=== PATIENT | female | born 1970 | race Caucasian/White ===

== ENCOUNTER 2017-09-13 05:14 | Emergency (ER) | payer OTHER ==
[~2017-09-13] VITALS: Ht 157.5 cm; Wt 65.8 kg
[2017-09-13 05:47] VITALS: BP 129/69
[2017-09-13] MEDS ORDERED: BENTYL PO STA (06:12)
--- NOTE | 2017-09-13 06:20 | ER.PDOC ---
General Chief Complaint: Abdomen Pain Stated Complaint: ABD PAIN Time seen by MD: 06:06 Source: patient Exam Limitations: no limitations History of Present Illness Initial Comments RUQ and epigast ab pain onset sev hrs ago, constant. No N/V, bowl or urine problems. No PSH Timing/Duration: 4-6 hours Severity/Quality: moderate Radiation: back Associated Symptoms: back pain Exacerbated by: nothing Relieved By: nothing Allergies: Coded Allergies: codeine (Verified Allergy, Unknown, 09/13/17) Vital Signs First Vital Signs Date Time Temp Pulse Resp B/P (MAP) Pulse Ox O2 Delivery O2 Flow Rate FiO2 09/13/17 05:43 98.1 64 18 99 Room Air 98.1 09/13/17 05:47 129/69 (89) Last Vital Signs Date Time Temp Pulse Resp B/P (MAP) Pulse Ox O2 Delivery O2 Flow Rate FiO2 09/13/17 05:47 98.1 82 18 129/69 (89) 99 Room Air 98.1 Past Medical History Medical History: other Surgical History: , tubal, other LMP (females 10-50): last week Social History Smoking: non-smoker Alcohol Use: occassionally Drug Use: none Constitutional: no symptoms reported EENTM: no symptoms reported Respiratory: no symptoms reported Cardiovascular: no symptoms reported Gastrointestinal: see HPI All Other Systems: Reviewed and Negative Physical Exam General Appearance: Anxious, Moderate Distress HEENT: PERRL/EOMI, Normal ENT Inspection Neck: Non-Tender, Supple, Normal Inspection Respiratory: chest non-tender, lungs clear, normal breath sounds, no respiratory distress Cardiovascular: Normal Peripheral Pulses, Regular Rate, Rhythm, No Edema Gastrointestinal: Normal Bowel Sounds, Soft, Guarding, Tenderness (RUQ and epigast.) Back: Normal Inspection, No CVA Tenderness, No Vertebral Tenderness Extremities: Normal Range of Motion, Non-Tender, Normal Inspection, No Pedal Edema 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 Bourne at 0700. EKG/XRAY/CT/US Ultrasound: gall bladder stones Course Vitals & review Data Vital Sign - Last 24 Hours 09/13/17 09/13/17 09/13/17 05:43 05:43 05:47 Temp 98.1 98.1 98.1 98.1 98.1 98.1 Pulse 64 82 82 Resp B/P (MAP) 129/69 (89) Pulse Ox 99 99 O2 Delivery Room Air Room Air Current Medications Medications (Trade) Dose Ordered Sig/Christin PRN Reason Start Time Stop Time Status Last Admin Dicyclomine HCl (Bentyl) 20 mg STAT STAT 09/13/17 06:12 09/13/17 06:13 Departure Time of Disposition: 08:11 Disposition: 01 HOME, SELF-CARE Impression: Primary Impression: Biliary colic Condition: Improved Referrals: TAMIA KUNZ MD (PCP) PRIMARY CARE PROVIDER Comments SURGERY F/U Duration or Time Spent with Pa: 2 hrs STEFFANIE PAL DO Sep 13, 2017 06:20 LUIS BOURNE MD Sep 13, 2017 07:37
[2017-09-13 06:25] LABS: BASOPHIL % 0.1 % (0.0-0.2); EOSINOPHIL # 0.1 10^3/uL (0.0-0.2); EOSINOPHIL % 1.1 % (0.0-5.0); HEMOGLOBIN 14.3 g/dL (12.0-15.0); LYMPHOCYTES # 1.2 10^3/uL (1.0-4.8); LYMPHOCYTES % 16.8 % (24.0-44.0); MEAN CELL HGB 32.1 pg (26-34); MEAN CELL HGB CONCENTRATION 34.7 g/dL (33-37); MEAN CORP VOLUME 92.6 fL (78-100); MEAN PLATELET VOLUME 10.2 fL (7.8-11.0); MONOCYTES # 0.5 10^3/uL (0.3-0.8); MONOCYTES % 6.8 % (5.0-12.0); NEUTROPHIL # 5.3 10^3/uL (1.8-7.7); NEUTROPHILS % 74.9 % (41.0-85.0); RED CELL DISTRIBUTION WIDTH 12.7 % (11.5-14.5)
[2017-09-13] MEDS ORDERED: NS 1000ML 1,000 ML IV ONE ×2 (06:30→08:30)
[2017-09-13] MEDS ORDERED: MORPHINE SULFATE SL ONE (06:30)
[2017-09-13 06:51] LABS: CARBON DIOXIDE 24.5 mmol/L (20.0-32)
[2017-09-13 07:04] LABS: BILIRUBIN,URINE NEGATIVE (NEGATIVE); UROBILINOGEN,URINE NORMAL (NEGATIVE)
[2017-09-13 07:06] LABS: APPEARANCE,URINE CLEAR (CLEAR); UA COLOR STRAW (YELLOW)
[2017-09-13] MEDS ORDERED: BENTYL ONE (07:08)
[2017-09-13] MEDS ORDERED: MORPHINE SULFATE IV STA (07:23)
[2017-09-13] MEDS ORDERED: MORPHINE SULFATE IV PRN (07:30)
--- NOTE | 2017-09-13 07:33 | NUR ---
US PATIENT RETURNED FROM US. FAMILY X 2 IN THE ROOM. MONITORS RE-APPLIED. LW
[2017-09-13] MEDS ORDERED: ZOFRAN IV STA (07:39)
[2017-09-13] MEDS ORDERED: NS 1000ML 1,000 ML ONE (07:44)
[2017-09-13] MEDS ORDERED: ZOFRAN ONE (07:45)
[2017-09-13] MEDS ORDERED: TORADOL IV STA (08:09)
[2017-09-13] MEDS ORDERED: TORADOL ONE (08:09)
--- NOTE | 2017-09-13 08:12 | DIREP ---
PROCEDURE:US ABDOMEN LIMITED (SINGLE ORGAN - QUAD) COMPARISON:None. INDICATIONS:RUQ pain TECHNIQUE:High resolution sonographic examination was performed of the abdomen. FINDINGS: RIGHT KIDNEY:10.16 cm x 4.08 cm x 5.16 cm, renal tissue volume is 111.99 ml GALL BLADDER WALL:2.92 mm CBD:2.85 mm PANCREAS:Not well visualized due to overlying bowel gas. LIVER:Normal size and echogenicity. No significant masses. Flow in the portal venous system is in the normal hepatopetal direction. BILIARY:Gallstones and biliary sludge are noted in the gallbladder lumen, including a stone in the neck of the gallbladder. The gallbladder is tender to overlying pressure applied by the ultrasound transducer (positive ultrasound Nina sign). RIGHT KIDNEY:Negative. OTHER:Negative. CONCLUSION: 1. Cholelithiasis with gallbladder tenderness. 2. No evidence of gallbladder wall thickening or pericholecystic fluid. No extrahepatic biliary ductal dilatation. Dictated by: Ronny Shaver M.D. on 09/13/2017 at 08:08 AM
--- NOTE | 2017-09-13 08:20 | NUR ---
pain Was given Morphine, but started having spasm type pains in the abdomen. Toradol given IV as ordered by the doctor. OOB to bathroom. Upon return to the room, patient is already feeling relief from the pain. Currently rates the pain at 3/10. lw
[2017-09-13 08:23] VITALS: BP 114/62
[2017-09-13 09:02] VITALS: BP 114/62
== END 2017-09-13 08:51 | disposition home or self-care (01) ==
LOC: ER 05:14
DX: K80.50 Calculus of bile duct without cholangitis or cholecystitis without obstruction (principal); Z88.5 Allergy status to narcotic agent; Z98.51 Tubal ligation status
CPT/HCPCS: 36415; 76705; 80053; 81002; 83690; 85025; 86677; 96374; 96375; 99285; J1885; J2405; J7030

== ENCOUNTER 2017-10-16 11:48 | Emergency (ER) | payer OTHER ==
[~2017-10-16] VITALS: Ht 157.5 cm; Wt 68.0 kg
[2017-10-16 12:06] VITALS: BP 138/51
--- NOTE | 2017-10-16 12:44 | ER.PDOC ---
General Chief Complaint: Extremities Stated Complaint: SHOULDER PAIN Time seen by MD: 12:42 Source: patient Exam Limitations: no limitations History of Present Illness Initial Comments Left shoulder pain from a fall 2 weeks ago. Where: home Severity: moderate Allergies: Coded Allergies: codeine (Verified Allergy, Unknown, 09/13/17) Past Medical History Medical History: no pertinent history Surgical History: Social History Smoking: non-smoker Alcohol Use: occassionally Drug Use: none Review of Systems Constitutional: no symptoms reported EENTM: no symptoms reported Respiratory: no symptoms reported Cardiovascular: no symptoms reported Gastrointestinal: no symptoms reported Musculoskeletal: see HPI All Other Systems: Reviewed and Negative Physical Exam General Appearance: Alert, No Apparent Distress Shoulder: tenderness (left shoulder) Upper Extremities: uninjuried below shoulder Neuro: sensation nml, motor nml Vascular: no vascular compromise Skin: warm/dry Head/ENT: nml inspection, pharynx nml Neck/Back: non-tender, nml inspection, painless ROM Respiratory: chest non-tender, breath sounds nml CVS: reg rate & rhythm, heart sounds nml Abdomen: non-tender, no organomegaly EKG/XRAY/CT/US XRAY Comments: No fracture or dislocation of left shoulder Departure Time of Disposition: 13:32 Disposition: 01 HOME, SELF-CARE Impression: Primary Impression: Injury of shoulder, left Condition: Stable Referrals: PCP,UNKNOWN (PCP) PRIMARY CARE PROVIDER Additional Instructions: Ibuprofen F/U with Dr. Alvarado in 1 week if no improvement. Duration or Time Spent with Pa: 45 mins Problem Qualifiers Primary Impression: Injury of shoulder, left Encounter type: initial encounter Qualified Codes: S49.92XA - Unspecified injury of left shoulder and upper arm, initial encounter NURY MCDUFFIE MD Oct 16, 2017 12:43
[2017-10-16 12:50] VITALS: BP 129/46
--- NOTE | 2017-10-16 13:15 | DIREP ---
PROCEDURE:XRAY SHOULDER MIN 2 VWS-LT COMPARISON:None. INDICATIONS:Pain from falling FINDINGS: BONES:Normal. JOINTS:Normal glenohumeral and acromioclavicular joints. No evidence for dislocation. SOFT TISSUES:Normal. OTHER:Normal. CONCLUSION:No fracture or dislocation is seen. Dictated by: Leandro Rae M.D. on 10/16/2017 at 01:14 PM
[2017-10-16 13:47] VITALS: BP 129/46
== END 2017-10-16 13:45 | disposition home or self-care (01) ==
LOC: ER 11:48
DX: S49.92XA Unspecified injury of left shoulder and upper arm, initial encounter (principal); Z88.5 Allergy status to narcotic agent; W17.89XA Other fall from one level to another, initial encounter; Y93.89 Activity, other specified; Y92.098 Other place in other non-institutional residence as the place of occurrence of the external cause; Y99.8 Other external cause status
CPT/HCPCS: 99284; 73030-LT

== ENCOUNTER 2019-03-10 03:50 | Emergency (ER) | payer OTHER ==
[~2019-03-10] VITALS: Ht 157.5 cm; Wt 72.6 kg
[2019-03-10 03:50] VITALS: BP 152/93
--- NOTE | 2019-03-10 03:50 | NUR ---
ARRIVAL PATIENT PRESENTS WITH COMPLAINTS OF ABDOMINAL PAIN. STATES, "I THINK IT'S MY GALLBLADDER". REPORTS HX GALLSTONES 1.5YRS AGO. ALSO COMPLAINS OF NAUSEA AND CHILLS. PATIENT STATES THAT SHE TOOK TRAMADOL @ 0000 AND GABAPENTIN @ 0030 WITH MINIMAL RELIEF. RATES PAIN 8/10; SHARP, RADIATING TO BACK TO LUQ/EPIGASTRIC. MD RETA NOTIFIED.
[2019-03-10 04:00] VITALS: BP 123/89
[2019-03-10] MEDS ORDERED: TORADOL ONE (04:09)
[2019-03-10] MEDS ORDERED: NS 1000ML 1,000 ML ONE (04:09)
--- NOTE | 2019-03-10 04:10 | ER.PDOC ---
General Chief Complaint: Requesting Medical Care Stated Complaint: ABD PAIN Time seen by MD: 04:07 Source: patient Exam Limitations: no limitations History of Present Illness Initial Comments Abdominal pain since last night, no fever, chills, nausea or vomiting. Severity/Quality: moderate, sharpness Radiation: back Associated Symptoms: denies symptoms Exacerbated by: nothing Relieved By: nothing Allergies: Coded Allergies: codeine (Verified Allergy, Unknown, 09/13/17) Vital Signs First Vital Signs Date Time Temp Pulse Resp B/P (MAP) Pulse Ox O2 Delivery O2 Flow Rate FiO2 03/10/19 03:50 98.2 93 20 100 Last Vital Signs Date Time Temp Pulse Resp B/P (MAP) Pulse Ox O2 Delivery O2 Flow Rate FiO2 03/10/19 03:50 98.2 93 20 03/10/19 03:50 100 Past Medical History Medical History: no pertinent history Surgical History: , tubal Social History Alcohol Use: occassionally Drug Use: none Constitutional: no symptoms reported Respiratory: no symptoms reported Cardiovascular: no symptoms reported Gastrointestinal: see HPI Genitourinary: no symptoms reported All Other Systems: Reviewed and Negative Physical Exam General Appearance: No Apparent Distress, WD/WN Neck: Non-Tender, Full Range of Motion, Supple, Normal Inspection Respiratory: chest non-tender, lungs clear, normal breath sounds, no respiratory distress, no accessory muscle use Cardiovascular: Normal Peripheral Pulses, Regular Rate, Rhythm, No Edema, No Gallop, No JVD, No Murmur Gastrointestinal: Normal Bowel Sounds, No Organomegaly, No Pulsatile Mass, Tenderness (Upper abdomen) Back: Normal Inspection, No CVA Tenderness, No Vertebral Tenderness Extremities: Normal Range of Motion, Non-Tender, Normal Inspection, No Pedal Edema, No Calf Tenderness, Normal Capillary Refill, Pelvis Stable 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 (03/10/19 04:04) Urinalysis (03/10/19 04:04) Hcg Urine (03/10/19 04:04) Ketorolac Tromethamine (Toradol) (03/10/19 04:04) Ekg-Routine (03/10/19 04:04) 0.9 % Sodium Chloride (Ns 1000ml) (03/10/19 04:08) Ketorolac Tromethamine (Toradol) (03/10/19 04:09) Urine Culture (03/10/19 04:15) Vital Signs Date Time Temp Pulse Resp B/P (MAP) Pulse Ox O2 Delivery O2 Flow Rate FiO2 03/10/19 03:50 98.2 93 20 03/10/19 03:50 98.2 93 20 100 Administered Medications Medications (Trade) Dose Ordered Sig/Christin Route PRN Reason Start Time Stop Time Status Last Admin Dose Admin Ketorolac Tromethamine (Toradol) 30 mg STAT STAT IV 03/10/19 04:04 03/10/19 04:09 DC 03/10/19 04:30 30 MG Sodium Chloride 1,000 ml @ 1,200 mls/hr Q50M STAT IV 03/10/19 04:08 03/10/19 04:57 UNV 03/10/19 04:30 1,200 MLS/HR Laboratory Tests Test 03/10/19 04:00 03/10/19 04:15 White Blood Count 5.8 10^3/uL (4.5-11.0) Red Blood Count 4.47 10^6/uL (4.00-5.20) Hemoglobin 14.5 g/dL (12.0-15.0) Hematocrit 40.7 % (36.0-46.0) Mean Corpuscular Volume 91.1 fL (78-100) Mean Corpuscular Hemoglobin 32.4 pg (26-34) Mean Corpuscular Hemoglobin Concent 35.6 g/dL (33-37) Red Cell Distribution Width 12.6 % (11.5-14.5) Platelet Count 256 10^3/uL (150-400) Mean Platelet Volume 10.6 fL (7.8-11.0) Neutrophils (%) (Auto) 60.5 % (41.0-85.0) Lymphocytes (%) (Auto) 25.5 % (24.0-44.0) Monocytes (%) (Auto) 11.4 % (5.0-12.0) Neutrophils # (Auto) 3.5 10^3/uL (1.8-7.7) Lymphocytes # (Auto) 1.5 10^3/uL (1.0-4.8) Monocytes # (Auto) 0.7 10^3/uL (0.3-0.8) Absolute Immature Granulocyte (auto 0.01 10^3 u/L (0-2) Absolute Eosinophils (auto) 0.1 10^3/uL (0.0-0.2) Immature Granulocytes % 0.20 % (0.00-0.50) Eosinophils % 2.2 % (0.0-5.0) Basophils % 0.2 % (0.0-0.2) Basophils # 0.0 10^3/uL (0.0-0.1) Prothrombin Time 10.4 SEC (9.4-11.5) Prothrombin Time INR (Non-Therap) 1.0 Activated Partial Thromboplast Time 23.1 SEC (24.67-30.72) Sodium Level 142 mmol/L (132-145) Potassium Level 3.6 mmol/L (3.6-5.2) Chloride Level 104.0 mmol/L (96-109) Carbon Dioxide Level 24.6 mmol/L (20.0-32) Anion Gap 17.0 Blood Urea Nitrogen 11 mg/dL (7-18) Creatinine 0.90 mg/dL (0.59-1.40) Estimated GFR () 80.2 (>/=60) Est GFR (CKD-EPI)(Non-Afr Irish) 66.3 (>/=60) BUN/Creatinine Ratio 12.0 Glucose Level 102 mg/dL (70-110) Calcium Level 8.7 mg/dL (8.4-10.5) Total Bilirubin 0.2 mg/dL (0.2-1.0) Aspartate Amino Transferase (AST) 20 U/L (0-35) Alanine Aminotransferase (ALT) 28 U/L (12-78) Alkaline Phosphatase 48 U/L (50-136) L Total Protein 7.1 g/dL (6.4-8.2) Albumin 3.9 g/dL (3.4-5.0) Globulin 3.2 Lipase 115 U/L (114-286) Helicobacter pylori Screen NEGATIVE (NEGATIVE) Urine Collection Type VOID Urine Color YELLOW (YELLOW) Urine Appearance CLEAR (CLEAR) Urine Bilirubin NEGATIVE MG/DL (NEGATIVE) Urine Ketones 50 mg/dL (NEGATIVE) Urine Specific [place] 1.020 (1.005-1.035) Urine pH 5 (5.0-6.0) Urine Protein NEGATIVE (NEGATIVE) Urine Urobilinogen NORMAL (NEGATIVE) Urine Nitrate NEGATIVE (NEGATIVE) Urine Leukocyte Esterase 25 /uL TRACE (NEGATIVE) Urine Blood NEGATIVE (NEGATIVE) Urine RBC NONE SEEN RBC/HPF (NONE Urine WBC 0-2 WBC/HPF (0-2) Urine Squamous Epithelial Cells MODERATE #/HPF (FEW) Urine Bacteria FEW (NONE SEEN) H Urine Glucose NORMAL (NEGATIVE) Urine HCG, Qualitative NEGATIVE (NEGATIVE) Progress Progress CT abdomen/pelvis: Gallstone. Adnexal cyst left. Possible spiculated breast mass 5 o'clock left breast on the most cephalad slice. Consider follow-up diagnostic mammogram left breast. Patient told to establish and follow up with a PCP who will order a diagnostic mammogram of left breast for mass and she voiced understanding. She is currently pain free. Course Sepsis Screening Results: Posi: POSITIVE SEPSIS RISK Duration or Total Time Spent w: 45 mins Vitals & review Data Vital Sign - Last 24 Hours 03/10/19 03/10/19 03:50 03:50 Temp 98.2 98.2 Pulse 93 93 Resp 20 20 Pulse Ox 100 Laboratory Tests Test 03/10/19 04:00 03/10/19 04:15 White Blood Count 5.8 10^3/uL Red Blood Count 4.47 10^6/uL Hemoglobin 14.5 g/dL Hematocrit 40.7 % Mean Corpuscular Volume 91.1 fL Mean Corpuscular Hemoglobin 32.4 pg Mean Corpuscular Hemoglobin Concent 35.6 g/dL Red Cell Distribution Width 12.6 % Platelet Count 256 10^3/uL Mean Platelet Volume 10.6 fL Neutrophils (%) (Auto) 60.5 % Lymphocytes (%) (Auto) 25.5 % Monocytes (%) (Auto) 11.4 % Neutrophils # (Auto) 3.5 10^3/uL Lymphocytes # (Auto) 1.5 10^3/uL Monocytes # (Auto) 0.7 10^3/uL Absolute Immature Granulocyte (auto 0.01 10^3 u/L Absolute Eosinophils (auto) 0.1 10^3/uL Immature Granulocytes % 0.20 % Eosinophils % 2.2 % Basophils % 0.2 % Basophils # 0.0 10^3/uL Prothrombin Time 10.4 SEC Prothrombin Time INR (Non-Therap) 1.0 Activated Partial Thromboplast Time 23.1 SEC Sodium Level 142 mmol/L Potassium Level 3.6 mmol/L Chloride Level 104.0 mmol/L Carbon Dioxide Level 24.6 mmol/L Anion Gap 17.0 Blood Urea Nitrogen 11 mg/dL Creatinine 0.90 mg/dL Estimated GFR () 80.2 Est GFR (CKD-EPI)(Non-Afr Irish) 66.3 BUN/Creatinine Ratio 12.0 Glucose Level 102 mg/dL Calcium Level 8.7 mg/dL Total Bilirubin 0.2 mg/dL Aspartate Amino Transf (AST/SGOT) 20 U/L Alanine Aminotransferase (ALT/SGPT) 28 U/L Alkaline Phosphatase 48 U/L Total Protein 7.1 g/dL Albumin 3.9 g/dL Globulin 3.2 Lipase 115 U/L Helicobacter pylori Screen NEGATIVE Urine Collection Type VOID Urine Color YELLOW Urine Appearance CLEAR Urine Bilirubin NEGATIVE MG/DL Urine Ketones 50 mg/dL Urine Specific [place] 1.020 Urine pH 5 Urine Protein NEGATIVE Urine Urobilinogen NORMAL Urine Nitrate NEGATIVE Urine Leukocyte Esterase 25 /uL TRACE Urine Blood NEGATIVE Urine RBC NONE SEEN RBC/HPF Urine WBC 0-2 WBC/HPF Urine Squamous Epithelial Cells MODERATE #/HPF Urine Bacteria FEW Urine Glucose NORMAL Urine HCG, Qualitative NEGATIVE Current Medications Medications (Trade) Dose Ordered Sig/Christin PRN Reason Start Time Stop Time Status Last Admin Sodium Chloride 1,000 ml @ 1,200 mls/hr Q50M STAT 03/10/19 04:08 03/10/19 04:57 UNV 03/10/19 04:30 Departure Time of Disposition: 06:08 Disposition: 01 HOME, SELF-CARE Impression: Primary Impression: Cholelithiases Additional Impressions: Biliary colic Breast mass, left Condition: Stable Referrals: PCP,UNKNOWN (PCP) PRIMARY CARE PROVIDER Additional Instructions: Tramadol Bentyl F/U with a PCP who should order a diagnostic Mammogram of your left breast in 1- 2 days Return to ED if worsening symptoms or concerns. Duration or Time Spent with Pa: 60 mins Problem Qualifiers Primary Impression: Cholelithiases Cholelithiasis location: gallbladder Cholecystitis presence: without cholecystitis Biliary obstruction: without biliary obstruction Qualified Codes: K80.20 - Calculus of gallbladder without cholecystitis without obstruction NURY MCDUFFIE MD Mar 10, 2019 04:09
[2019-03-10 04:16] LABS: BASOPHIL % 0.2 % (0.0-0.2); EOSINOPHIL # 0.1 10^3/uL (0.0-0.2); EOSINOPHIL % 2.2 % (0.0-5.0); LYMPHOCYTES # 1.5 10^3/uL (1.0-4.8); LYMPHOCYTES % 25.5 % (24.0-44.0); MEAN CORP HGB 32.4 pg (26-34); MONOCYTES # 0.7 10^3/uL (0.3-0.8); MONOCYTES % 11.4 % (5.0-12.0); NEUTROPHIL # 3.5 10^3/uL (1.8-7.7); NEUTROPHILS % 60.5 % (41.0-85.0); RED CELL DISTRIBUTION WIDTH 12.6 % (11.5-14.5)
--- NOTE | 2019-03-10 04:26 | PCM.EKG ---
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
[2019-03-10] MEDS: NS 1000ML 1,000 ML IV STA (04:30)
[2019-03-10] MEDS: TORADOL IV STA (04:30)
[2019-03-10 04:32] LABS: CALCIUM 8.7 mg/dL (8.4-10.5); CARBON DIOXIDE 24.6 mmol/L (20.0-32)
[2019-03-10 04:41] LABS: BILIRUBIN,URINE NEGATIVE (NEGATIVE); UROBILINOGEN,URINE NORMAL (NEGATIVE)
[2019-03-10 04:42] LABS: APPEARANCE,URINE CLEAR (CLEAR); UA COLOR YELLOW (YELLOW)
[2019-03-10 05:00] VITALS: BP 124/59
--- NOTE | 2019-03-10 05:45 | DIREP ---
PROCEDURE:CT ABDOMEN/PELVIS W/ CONTRAST COMPARISON:None. INDICATIONS:epigastric and LUQ pain TECHNIQUE:Axial images were created through the abdomen and pelvis with non-ionic intravenous contrast material. No oral contrast was administered. Sagittal and coronal reconstructions were performed from source images. FINDINGS: LUNG BASES:Possible irregular mass in the lower portion of the left breast at approximately the 5 o'clock radial on the most cephalad slice. LIVER:Normal. No significant liver lesions are identified. BILIARY:Single large calcified gallstone. No ductal dilatation PANCREAS:Normal. No lesion, fluid collection, ductal dilatation, or atrophy. SPLEEN:Normal. No enlargement or focal lesion. ADRENALS:Normal. No mass or enlargement. URINARY TRACT:Normal. No focal lesions or hydronephrosis. AORTA/VASCULAR:Normal. No aneurysm. RETROPERITONEUM:Normal. No mass or adenopathy. BOWEL/MESENTERY:Normal. There is no intestinal obstruction, free fluid, free air or mesenteric inflammatory changes. ABDOMINAL WALL:Normal. No mass or hernia. PELVIC ORGANS:Uterus present. Adnexal cyst 1.4 x 2.6 cm left. No free fluid in the pelvis BONES:Normal for age. No bony lesion or acute fracture. OTHER:Negative. CONCLUSION:Gallstone. Adnexal cyst left. Possible spiculated breast mass 5 o'clock left breast on the most cephalad slice. Consider follow-up diagnostic mammogram left breast. Dictated by: Roberto Rae MD on 03/10/2019 at 05:37 AM
[2019-03-10 06:00] VITALS: BP 126/54
--- NOTE | 2019-03-10 06:23 | NUR ---
IV IV DISCONTINUED WITH TIP INTACT. PRESSURE DRESSING APPLIED.
== END 2019-03-10 06:46 | disposition home or self-care (01) ==
LOC: ER 03:50
DX: K80.70 Calculus of gallbladder and bile duct without cholecystitis without obstruction (principal); N63.20 Unspecified lump in the left breast, unspecified quadrant; Z88.5 Allergy status to narcotic agent
CPT/HCPCS: 36415; 74177; 80053; 81000; 81025; 83690; 85025; 85610; 85730; 86677; 87086; 87186; 93005; 96374; 99285; J1885; J7030; Q9965

== ENCOUNTER → 2019-03-18 | Outpatient (CLI) | payer OTHER ==
--- NOTE | 2019-03-18 14:36 | DIREP ---
PROCEDURE:MAMMO BILATERAL DIAGNOSTIC COMPARISON:None. INDICATIONS:Recall from screening for an asymmetric density. Screening mammography of the left breast. N63.23 LUMP IN LEFT BREAST, LOWER OUTER QUADRANT BREAST COMPOSITION:There are scattered areas of fibroglandular density. DIAGNOSTIC MAMMOGRAM: Right views: MLO and CC Left views: MLO, CC, mediolateral, and spot compression magnification (MLO and CC) Computer Assisted Detection (CAD) was utilized. Focal asymmetry within the left breast upper outer quadrant approximately 4 cm deep to the nipple. This abnormality partially disperses on spot compression views. No evidence of malignancy within the right breast. IMPRESSION:Focal asymmetry upper outer quadrant left breast, middle depth as detailed above. RECOMMENDATIONS:Left breast ultrasound recommended in order to fully assess. OVERALL FINAL ASSESSMENT:BI-RADS 0 - Incomplete: Need Additional Imaging Evaluation Dictated by: Gabo Bledsoe DO on 03/18/2019 at 02:29 PM
== END | disposition home or self-care (01) ==
LOC: RAD 13:16
PROVIDERS: ATTEND Internal Medicine
DX: N64.89 Other specified disorders of breast (principal); N63.23 Unspecified lump in the left breast, lower outer quadrant
CPT/HCPCS: 77066

== ENCOUNTER 2020-04-26 10:25 | Observation (INO) | payer OTHER ==
[~2020-04-26] VITALS: Ht 160 cm; Wt 86.6 kg
[2020-04-26] MEDS ORDERED: TORADOL IV STA (10:31)
--- NOTE | 2020-04-26 10:35 | ER.PDOC ---
General Chief Complaint: Requesting Medical Care Stated Complaint: ABD PAIN Time seen by MD: 10:33 Source: patient Exam Limitations: no limitations History of Present Illness Initial Comments Patient presents for evaluation of recurrent upper abdominal pain that feels similar to prior biliary colic that has brought her to the ED several times in the past. She has not followed up with surgeon because she reports that she can not afford to. Pain has been flaring for the past 2 weeks. She ate pizza and pain returned around 230am. She took he bentyl and tramadol without relief. Pain is sharp and to RUQ. Radiates to back. No urinary complaints. Last BM this morning. She has nausea but denies vomiting. No fever. Pain currently improved at /10 Allergies: Coded Allergies: codeine (Verified Allergy, Unknown, 09/13/17) Home Meds No Active Prescriptions or Reported Meds Vital Signs First Vital Signs Date Time Temp Pulse Resp B/P (MAP) Pulse Ox O2 Delivery O2 Flow Rate FiO2 04/26/20 10:37 97.9 71 16 130/51 (77) 94 Room Air Last Vital Signs Date Time Temp Pulse Resp B/P (MAP) Pulse Ox O2 Delivery O2 Flow Rate FiO2 04/26/20 11:37 97.9 55 16 113/63 (80) 96 Room Air Past Medical History Medical History: no pertinent history Surgical History: , tubal Social History Drug Use: none Reviewed Nursing Reviewed: Vital Signs, Abn. Noted, Nursing Assessment Constitutional: no symptoms reported Respiratory: no symptoms reported Cardiovascular: no symptoms reported Gastrointestinal: see HPI Genitourinary: no symptoms reported Musculoskeletal: no symptoms reported Endocrine: no symptoms reported All Other Systems: Reviewed and Negative Physical Exam General Appearance: No Apparent Distress, WD/WN HEENT: PERRL/EOMI, Normal ENT Inspection Neck: Supple Respiratory: lungs clear, normal breath sounds, no respiratory distress Cardiovascular: Normal Peripheral Pulses, Regular Rate, Rhythm, No Edema Gastrointestinal: Normal Bowel Sounds, Soft, Other (mild RUQ tenderness. Nina negative) Back: No CVA Tenderness, No Vertebral Tenderness Extremities: Non-Tender, Normal Inspection Neurologic/Psychiatric: No Motor/Sensory Deficits, Alert, Normal Mood/Affect Skin: Normal Color, Warm/Dry Results/Orders Results/Orders Orders - JENN ESCOTO MD Cbc With Auto Diff (04/26/20 10:31) Comprehensive Metabolic Panel (04/26/20 10:31) Amylase (04/26/20 10:31) Lipase (04/26/20 10:31) PT (04/26/20 10:31) Partial Thromboplastin Time. (04/26/20 10:31) Urinalysis (04/26/20 10:31) Saline Lock (04/26/20 10:31) Ketorolac Tromethamine (Toradol) (04/26/20 10:31) Us Gallbladder (04/26/20 10:36) Ketorolac Tromethamine (Toradol) (04/26/20 10:39) Ondansetron Hcl/Pf (Zofran) (04/26/20 10:45) Ondansetron Hcl/Pf (Zofran) (04/26/20 10:46) Vital Signs Date Time Temp Pulse Resp B/P (MAP) Pulse Ox O2 Delivery O2 Flow Rate FiO2 04/26/20 11:37 97.9 55 16 113/63 (80) 96 Room Air 04/26/20 10:37 97.9 71 16 04/26/20 10:37 97.9 71 16 94 04/26/20 10:37 97.9 71 16 130/51 (77) 94 Room Air Administered Medications Medications (Trade) Dose Ordered Sig/Christin Route PRN Reason Start Time Stop Time Status Last Admin Dose Admin Ketorolac Tromethamine (Toradol) 30 mg STAT STAT IV 04/26/20 10:31 04/26/20 10:33 DC 04/26/20 10:41 30 MG Ondansetron HCl (Zofran) 4 mg STAT STAT IV 04/26/20 10:45 04/26/20 10:46 DC 04/26/20 10:52 4 MG Laboratory Tests Test 04/26/20 10:37 04/26/20 11:35 White Blood Count 5.5 10^3/uL (4.5-11.0) Red Blood Count 4.45 10^6/uL (4.00-5.20) Hemoglobin 14.4 g/dL (12.0-15.0) Hematocrit 41.3 % (36.0-46.0) Mean Corpuscular Volume 92.8 fL (78-100) Mean Corpuscular Hemoglobin 32.4 pg (26-34) Mean Corpuscular Hemoglobin Concent 34.9 g/dL (33-36.5) Red Cell Distribution Width 12.1 % (11.5-14.5) Platelet Count 278 10^3/uL (150-400) Mean Platelet Volume 10.1 fL (7.8-11.0) Neutrophils (%) (Auto) 61.9 % (41.0-85.0) Lymphocytes (%) (Auto) 26.9 % (24.0-44.0) Monocytes (%) (Auto) 8.8 % (5.0-12.0) Neutrophils # (Auto) 3.4 10^3/uL (1.8-7.7) Lymphocytes # (Auto) 1.47 10^3/uL1 (1.0-4.8) Monocytes # (Auto) 0.5 10^3/uL (0.3-0.8) Absolute Immature Granulocyte (auto 0.01 10^3 u/L (0-2) Absolute Eosinophils (auto) 0.1 10^3/uL (0.0-0.2) Immature Granulocytes % 0.20 % (0.00-0.50) Eosinophils % 1.8 % (0.0-5.0) Basophils % 0.4 % (0.0-0.2) H Basophils # 0.0 10^3/uL (0.0-0.1) Prothrombin Time 10.6 SEC (9.3-11.3) Prothrombin Time INR (Non-Therap) 1.0 Activated Partial Thromboplast Time 23.8 SEC (24.67-30.72) Sodium Level 141 mmol/L (132-145) Potassium Level 3.8 mmol/L (3.6-5.2) Chloride Level 103.0 mmol/L (96-109) Carbon Dioxide Level 30.4 mmol/L (20.0-32) Anion Gap 11.4 Blood Urea Nitrogen 11 mg/dL (7-18) Creatinine 0.98 mg/dL (0.59-1.40) Estimated GFR () 72.4 (>/=60) Est GFR (CKD-EPI)(Non-Afr [place]onian) 59.8 (>/=60) BUN/Creatinine Ratio 11.0 Glucose Level 97 mg/dL (70-110) Calcium Level 9.3 mg/dL (8.4-10.5) Total Bilirubin 0.2 mg/dL (0.2-1.0) Aspartate Amino Transferase (AST) 36 U/L (0-35) H Alanine Aminotransferase (ALT) 61 U/L (12-78) Alkaline Phosphatase 70 U/L (50-136) Total Protein 7.5 g/dL (6.4-8.2) Albumin 4.0 g/dL (3.4-5.0) Globulin 3.5 Albumin/Globulin Ratio 1.142 Amylase Level 39 U/L (25-115) Lipase 69 U/L (114-286) L Urine Collection Type UNKNOWN Urine Color YELLOW (YELLOW) Urine Appearance CLEAR (CLEAR) Urine Bilirubin NEGATIVE MG/DL (NEGATIVE) Urine Ketones NEGATIVE (NEGATIVE) Urine Specific [place] 1.020 (1.005-1.035) Urine pH 7.0 (5.0-6.0) Urine Protein NEGATIVE (NEGATIVE) Urine Urobilinogen NORMAL (NEGATIVE) Urine Nitrate NEGATIVE (NEGATIVE) Urine Leukocyte Esterase NEGATIVE (NEGATIVE) Urine Blood NEGATIVE (NEGATIVE) Urine Glucose NORMAL (NEGATIVE) Progress Progress Patient with US findings concerning for acute cholecystitis. She was discussed with surgeon, Dr Bai, who would like her admitted to Hospitalist. She was then discussed with Dr Mock who accepted her to Med/Surg under Obs status ER DEPART Departure Time of Disposition: 11:55 Disposition: 09 ADMITTED INPATIENT Impression: Primary Impression: Acute cholecystitis due to biliary calculus Condition: Stable Referrals: CHARITO JOHNSON MD (PCP) PRIMARY CARE PROVIDER Scripts No Active Prescriptions or Reported Meds Duration or Time Spent with Pa: 25 JENN ESCOTO MD Apr 26, 2020 10:35
[2020-04-26 10:37] VITALS: BP 130/51
[2020-04-26] MEDS ORDERED: TORADOL ONE (10:39)
--- NOTE | 2020-04-26 10:41 | NUR ---
ARRIVAL PATIENT ARRIVED TO [facility] AMBULATORY, C/O OF ABDOMEN PAIN SINCE 0230 THIS MORNING, DID TAKE ZOFRAN,BENTYL, AND TRAMADOL PERSONAL INJURY LITIGATION PARALEGAL WITH MINIMAL RELIEF, HAS BEEN SEEN IN THIS ED FOR SAME SYMPTOMS AND TOLD SHE "NEEDED HER GALL BLADDER OUT", DOES SEE DOCTOR ALEX BUT DUE TO NO INSURANCE IS UNABLE TO SEE A SURGEON FOR POSSIBLE GALL BLADDER REMOVAL. VITAL SIGNS OBTAINED AND DOCTOR JEVON TO ROOM TO SEE PATIENT.
[2020-04-26] MEDS ORDERED: ZOFRAN IV STA (10:45)
[2020-04-26] MEDS ORDERED: ZOFRAN ONE (10:46)
[2020-04-26 10:47] LABS: BASOPHIL % 0.4 % (0.0-0.2); EOSINOPHIL # 0.1 10^3/uL (0.0-0.2); EOSINOPHIL % 1.8 % (0.0-5.0); LYMPHOCYTES # 1.47 10^3/uL1 (1.0-4.8); LYMPHOCYTES % 26.9 % (24.0-44.0); MEAN CORP HGB 32.4 pg (26-34); MONOCYTES # 0.5 10^3/uL (0.3-0.8); MONOCYTES % 8.8 % (5.0-12.0); NEUTROPHIL # 3.4 10^3/uL (1.8-7.7); NEUTROPHILS % 61.9 % (41.0-85.0); PLATELET COUNT 278 10^3/uL (150-400); RED CELL DISTRIBUTION WIDTH 12.1 % (11.5-14.5)
--- NOTE | 2020-04-26 11:06 | NUR ---
ULTRASOUND PATIENT TO ULTRASOUND WITH [employer] TELEVISION NEWS PRODUCER.
[2020-04-26 11:07] LABS: CALCIUM 9.3 mg/dL (8.4-10.5); CARBON DIOXIDE 30.4 mmol/L (20.0-32)
--- NOTE | 2020-04-26 11:24 | NUR ---
ULTRASOUND PATIENT BACK FROM ULTRASOUND
[2020-04-26 11:37] VITALS: BP 113/63
--- NOTE | 2020-04-26 11:47 | DIREP ---
PROCEDURE:US ABDOMEN LIMITED (SINGLE ORGAN - QUAD) COMPARISON:[facility], CT, CT ABD/PELVIS W/ CONTRAST, 03/10/2019, 04:49 AM. [facility], US, US ABDOMEN LIMITED(SINGLE ORGAN-QUAD), 09/13/2017, 07:06 AM. INDICATIONS:RUQ pain, Cholecystitis x 3 yr. TECHNIQUE:High resolution sonographic examination was performed of the abdomen. FINDINGS: PANCREAS:The pancreas is partially obscured by bowel gas shadowing. Visualized portions appear unremarkable. LIVER:Normal hepatic parenchymal architecture. No focal hepatic lesion is identified. Hepatopetal flow in the portal vein. GALLBLADDER:There is sludge and at least one large shadowing gallstone present in the neck of the gallbladder with gallbladder wall thickening and pericholecystic fluid present. Positive sonographic Nina's sign. BILIARY:There is no biliary ductal dilatation. RIGHT KIDNEY:Normal. No hydronephrosis. OTHER:Negative. No ascites is identified. CBD:0.6 cm GALLBLADDER WALL: 0.5 cm RIGHT KIDNEY: 10.9 x 4.7 x 5.1 cm CONCLUSION:Large gallstone and findings suspicious for acute cholecystitis. Positive sonographic Nina's sign. Dictated by: SUPA Physician on 04/26/2020 at 11:37 AM ac
[2020-04-26 11:48] LABS: BILIRUBIN,URINE NEGATIVE (NEGATIVE); UA COLOR YELLOW (YELLOW); UROBILINOGEN,URINE NORMAL (NEGATIVE)
--- NOTE | 2020-04-26 11:50 | NUR ---
LAYNE ESCOTO ON THE PHONE WITH DOCTOR TILLMAN AT THIS TIME.
--- NOTE | 2020-04-26 11:52 | NUR ---
DR JENN ESCOTO ON THE PHONE WITH DR BARAJAS REGARDING ADMISSION. ACCEPTED PT TO [facility].
[2020-04-26] MEDS ORDERED: MEFOXIN 2 GM in NS 100ML 100 ML IV STA (11:56)
[2020-04-26] MEDS ORDERED: MEFOXIN ONE (12:00)
[2020-04-26] MEDS ORDERED: NS 100ML 100 ML IV ONE (12:00)
--- NOTE | 2020-04-26 12:30 | NUR ---
PATIENT RECEIVED TO UNIT VIA TRANSPORT CHAIR. NO ACUTE DISTRESS NOTED. SPOUSE AT BEDSIDE. ORIENTED TO ROOM/UNIT/USE OF CALL LIGHT/POC.
[2020-04-26] MEDS ORDERED: D5W-1/2NS 1000ML 1,000 ML IV ONE (14:30)
[2020-04-26 14:38] LABS: BASOPHIL % 0.2 % (0.0-0.2); EOSINOPHIL # 0.1 10^3/uL (0.0-0.2); EOSINOPHIL % 2.4 % (0.0-5.0); LYMPHOCYTES # 1.87 10^3/uL1 (1.0-4.8); LYMPHOCYTES % 34.9 % (24.0-44.0); MEAN CORP HGB 32.3 pg (26-34); MONOCYTES # 0.5 10^3/uL (0.3-0.8); MONOCYTES % 9.3 % (5.0-12.0); NEUTROPHIL # 2.8 10^3/uL (1.8-7.7); PLATELET COUNT 251 10^3/uL (150-400); RED CELL DISTRIBUTION WIDTH 12.1 % (11.5-14.5)
--- NOTE | 2020-04-26 14:40 | PCM.HP ---
History of Present Illness Hx of Present Illness 49-year-old female with no significant past medical history presented to emergency room with right upper quadrant abdominal pain for the last few days. Patient has been having this pain for a long time on and off. According to her she takes dicyclomine and tramadol which helps sometimes. Denies fevers chills or vomiting. Work-up in the emergency room including imaging studies she was found to cholelithiasis with possible acute cholecystitis. Positive Nina sign. Surgeon being consulted. Patient is being in the hospital for further management. Past Medical History Hx Last Menstrual Period: JANUARY 2020 Past Surgical History: (1) H/O tubal ligation ICD Code: Z98.51 - Tubal ligation status SNOMED: 15682186, 598408968 (2) Biliary colic Status: Acute ICD Code: K80.50 - Calculus of bile duct without cholangitis or cholecystitis without obstruction SNOMED: 71689581 Travel History EBOLA RISK:Travel to/contact w: No Review of Systems Constitutional: No: Fever, Chills Eyes: No: Pain, Vision change ENT: No: Ear pain, Ear discharge Respiratory: No: Cough, Shortness of breath Cardiovascular: No: Chest Pain, Palpitations, Orthopnea Gastrointestinal: Nausea, Abdominal Pain; No: Vomiting, Diarrhea Genitourinary: No Dysuria, No Frequency Musculoskeletal: No: shoulder pain, back pain Skin: No: Rash, Lesions Neurological: No: Weakness, Numbness Allergies: Coded Allergies: codeine (Verified Allergy, Unknown, 09/13/17) No Active Prescriptions or Reported Meds VTE VTE Risk Score VTE Risk: Score 0-1 = Low Risk (Aggressive mobilization; early ambulation; no VTE prophylaxis required) Score 2: Moderate Risk (Intermittent/Pneumatic Compression Device OR Lovenox/Heparin/Coumadin) Score 3-4: High Risk (Intermittent/Pneumatic Compression Device AND Lovenox/Heparin/Coumadin) Score > or =5: Highest Risk (Intermittent/Pneumatic Compression Device AND Lovenox/Heparin/Coumadin) Antico:Hep/LMWH/Coum/Xarelto: No Mechanical device ordered: Yes VTE Antico:Hep/LMWH/Coum/Xarelto: No Mechanical device ordered: Yes Contraindications for not pres: Surgical contraindication Exam Vital Signs Vital Signs Date Time Temp Pulse Resp B/P (MAP) Pulse Ox O2 Delivery O2 Flow Rate FiO2 3/10/21 12:44 Room Air 04/26/20 11:37 97.9 55 16 113/63 (80) 96 General Appearance: Alert, Oriented X3, Cooperative, moderate distress HEENT: Atraumatic, PERRLA Respiratory: Clear to auscultation, Normal air movement Cardiovascular: Regular rate, Normal S1, Normal S2 Abdominal: Normal bowel sounds, Soft, Other (Epigastric and right upper quadrant tenderness) Extremities: No clubbing, No cyanosis Skin: No rash, No lesions Neuro: Normal gait, Strength at 5/5 X4 ext, Normal tone, Sensation intact Psych/Mental Status: Mental status NL, Mood NL Assessment/Plan Assessment/Plan Problems: (1) Acute cholecystitis due to biliary calculus Status: Acute Assessment & Plan: Admit. Keep n.p.o. IV fluids. Pain management. IV antibiotic. Surgeon consulted for evaluation and further management. Reconcile home meds. DVT prophylaxis as appropriate. Expected to stay 1 midnight if patient stable and cleared by surgeon. ICD Code: K80.00 - Calculus of gallbladder with acute cholecystitis without obstruction SNOMED: [id number] JENN GAXIOLA MD Apr 26, 2020 14:40
[2020-04-26 14:53] LABS: CALCIUM 9.2 mg/dL (8.4-10.5); CARBON DIOXIDE 29.1 mmol/L (20.0-32)
[2020-04-26 15:06] VITALS: BP 95/56
--- NOTE | 2020-04-26 16:22 | PRM.CONS ---
CONSULTATION CONSULTATION Chief complaint Symptomatic cholelithiasis History of present illness 49-year-old female who is been having issues with her gallbladder for couple years now. She reports that a couple days ago she had pizza and since that time she has had nausea but no vomiting and severe abdominal pain located in the right upper quadrant which now is currently just a throbbing pain. It does not radiate to her back. It does can radiate to the flanks. She reports positive for nausea but no vomiting. Denies diarrhea but positive constipation. Denies fevers but reports some chills but she believes this is secondary to going through menopause. In the past she does not associate having pain with the ingestion of greasy fatty spicy or fried foods because sometimes it causes pain sometimes it does not. No history of jaundice. Past surgical history includes C-sections x2, tubal ligation, and D&C x3 Past medical problems None Medications None Allergies Codeine Family/social history Denies tobacco and drug use, social alcohol Father with diabetes. She does not know anything about her mother. Review of systems General: Denies fevers and significant weight loss positive for chills HEENT: Denies blurry vision, double vision, hearing loss, swallowing issues CVS: Denies heart attack, stroke, high blood pressure Lungs: Denies shortness of breath or productive cough Abdomen: Positive for right upper quadrant pain, nausea, constipation denies vomiting, diarrhea, jaundice Extremities: Denies unusual weakness or numbness to any of her extremities Psych: Denies anxiety or depression Blood: Denies any knowledge of hypercoagulable state or easy bruising/bleeding Physical exam Vitals See vitals in chart Labs See labs in chart Radiology Reviewed ultrasound of gallbladder, disagree with radiologist assessment of pericholecystic fluid General: Alert and oriented x3 no acute distress HEENT: Pulls equal round reactive to light, extraocular muscles intact, hearing intact, neck supple CVS: Regular rate and rhythm Lungs: Clear to auscultation bilaterally Abdomen: Soft, tenderness to palpation in the right upper quadrant, bowel sounds hypoactive, nondistended Extremities: 2+ distal pulses Psych: Calm and lucid Assessment and plan 49-year-old female with symptomatic cholelithiasis 1. We will plan for laparoscopic cholecystectomy tomorrow 2. Okay for clear liquids today but n.p.o. at midnight JANEY TILLMAN MD Apr 26, 2020 16:22
[2020-04-26] MEDS: MEFOXIN 2 GM in NS 100ML 100 ML IV SCH (17:23)
[2020-04-26 17:46] VITALS: BP 96/50
[2020-04-26] MEDS: D5W-1/2NS 1000ML 1,000 ML IV SCH (18:30)
[2020-04-26 19:42] VITALS: BP 135/75
[2020-04-26] MEDS: PEPCID IV SCH (20:35)
[2020-04-26] MEDS: TORADOL IV PRN (22:52)
[2020-04-26 23:48] VITALS: BP 118/55
[2020-04-27] VITALS (19 sets, daily range): BP systolic 97–118; BP diastolic 41–88
[2020-04-27] MEDS: MEFOXIN 2 GM in NS 100ML 100 ML IV SCH ×2 (01:35→09:13)
[2020-04-27] MEDS: ZOFRAN IV PRN ×3 (04:46→16:31)
[2020-04-27] MEDS: D5W-1/2NS 1000ML 1,000 ML IV SCH ×2 (04:54→14:30)
[2020-04-27] MEDS: TORADOL IV PRN (09:00)
[2020-04-27] MEDS ORDERED: LIDOCAINE 2% VIAL ONE (09:10)
[2020-04-27] MEDS ORDERED: ZOFRAN ONE (09:11)
[2020-04-27] MEDS ORDERED: VERSED ONE ×2 (09:11→12:41)
[2020-04-27] MEDS ORDERED: DECADRON ONE (09:11)
[2020-04-27] MEDS ORDERED: TORADOL ONE (09:11)
[2020-04-27] MEDS ORDERED: ROCURONIUM BROMIDE IV ONE (09:11)
[2020-04-27] MEDS ORDERED: QUELICIN ONE (09:11)
[2020-04-27] MEDS ORDERED: BRIDION IV ONE (09:12)
[2020-04-27] MEDS ORDERED: LACTATED RINGERS 2,000 ML ONE (09:12)
[2020-04-27] MEDS ORDERED: SUBLIMAZE ONE (09:12)
[2020-04-27] MEDS: PEPCID IV SCH (09:12)
[2020-04-27] MEDS ORDERED: LACTATED RINGERS 1,000 ML ONE (10:52)
[2020-04-27] MEDS ORDERED: SODIUM CHLORIDE IRR BOTTLE IR ONE (10:54)
[2020-04-27] MEDS ORDERED: SODIUM CHLORIDE IRR BAG IR ONE (10:54)
--- NOTE | 2020-04-27 10:55 | PRM.PN ---
Progress Note Subjective Physician Notes: doing well Objective Review IO, Exams,& Results Problems Acute/Active Problems: (1) Acute cholecystitis due to biliary calculus Vital Signs Date Time Temp Pulse Resp B/P (MAP) Pulse Ox O2 Delivery O2 Flow Rate FiO2 04/27/20 08:21 Room Air 04/27/20 08:16 98.0 62 18 118/56 (76) 97 Laboratory Tests Test 04/26/20 10:37 04/26/20 11:35 04/26/20 14:33 White Blood Count 5.5 10^3/uL 5.4 10^3/uL Red Blood Count 4.45 10^6/uL 4.12 10^6/uL Hemoglobin 14.4 g/dL 13.3 g/dL Hematocrit 41.3 % 38.9 % Mean Corpuscular Volume 92.8 fL 94.4 fL Mean Corpuscular Hemoglobin 32.4 pg 32.3 pg Mean Corpuscular Hemoglobin Concent 34.9 g/dL 34.2 g/dL Red Cell Distribution Width 12.1 % 12.1 % Platelet Count 278 10^3/uL 251 10^3/uL Mean Platelet Volume 10.1 fL 10.2 fL Neutrophils (%) (Auto) 61.9 % 53.0 % Lymphocytes (%) (Auto) 26.9 % 34.9 % Monocytes (%) (Auto) 8.8 % 9.3 % Neutrophils # (Auto) 3.4 10^3/uL 2.8 10^3/uL Lymphocytes # (Auto) 1.47 10^3/uL1 1.87 10^3/uL1 Monocytes # (Auto) 0.5 10^3/uL 0.5 10^3/uL Absolute Immature Granulocyte (auto 0.01 10^3 u/L 0.01 10^3 u/L Absolute Eosinophils (auto) 0.1 10^3/uL 0.1 10^3/uL Immature Granulocytes % 0.20 % 0.20 % Eosinophils % 1.8 % 2.4 % Basophils % 0.4 % 0.2 % Basophils # 0.0 10^3/uL 0.0 10^3/uL Prothrombin Time 10.6 SEC Prothrombin Time INR (Non-Therap) 1.0 Activated Partial Thromboplast Time 23.8 SEC Sodium Level 141 mmol/L 141 mmol/L Potassium Level 3.8 mmol/L 4.0 mmol/L Chloride Level 103.0 mmol/L 105.0 mmol/L Carbon Dioxide Level 30.4 mmol/L 29.1 mmol/L Anion Gap 11.4 10.9 Blood Urea Nitrogen 11 mg/dL 10 mg/dL Creatinine 0.98 mg/dL 0.96 mg/dL Estimated GFR () 72.4 74.1 Est GFR (CKD-EPI)(Non-Afr Citizen Of [place]) 59.8 61.3 BUN/Creatinine Ratio 11.0 10.0 Glucose Level 97 mg/dL 95 mg/dL Calcium Level 9.3 mg/dL 9.2 mg/dL Total Bilirubin 0.2 mg/dL Aspartate Amino Transf (AST/SGOT) 36 U/L Alanine Aminotransferase (ALT/SGPT) 61 U/L Alkaline Phosphatase 70 U/L Total Protein 7.5 g/dL Albumin 4.0 g/dL Globulin 3.5 Albumin/Globulin Ratio 1.142 Amylase Level 39 U/L Lipase 69 U/L Urine Collection Type UNKNOWN Urine Color YELLOW Urine Appearance CLEAR Urine Bilirubin NEGATIVE MG/DL Urine Ketones NEGATIVE Urine Specific [place] 1.020 Urine pH 7.0 Urine Protein NEGATIVE Urine Urobilinogen NORMAL Urine Nitrate NEGATIVE Urine Leukocyte Esterase NEGATIVE Urine Blood NEGATIVE Urine Glucose NORMAL Current Medications Medications (Trade) Dose Ordered Sig/Christin PRN Reason Start Time Stop Time Status Last Admin Cefoxitin Sodium 2 gm/Sodium Chloride 100 ml @ 100 mls/hr Q8H 04/26/20 18:00 05/26/20 17:59 04/27/20 09:13 Famotidine (Pepcid) 20 mg BID 04/26/20 21:00 05/26/20 20:59 04/27/20 09:12 Ketorolac Tromethamine (Toradol) 15 mg Q6H PRN PAIN 4 - 6 04/26/20 14:30 05/01/20 14:29 04/27/20 09:00 Ondansetron HCl (Zofran) 4 mg Q4H PRN NAUSEA / VOMITING 04/27/20 05:00 05/27/20 04:59 04/27/20 09:13 Orders - JANEY TILLMAN MD Clear Liquid Diet (04/26/20 Dinner) Heart: Regular rate, Normal S1, Normal S2 Abdomen: Normal bowel sounds, Soft, Other (Epigastric and right upper quadrant tenderness) Lungs: Clear to auscultation, Normal air movement Assessment & Plan: Assessment 49 yo F with symptomatic cholelithiasis 1. surgery today JANEY TILLMAN MD Apr 27, 2020 10:55
--- NOTE | 2020-04-27 11:00 | NUR ---
PATIENT LEFT UNIT VIA BED TO OR. SPOUSE AT BEDSIDE.
[2020-04-27] MEDS ORDERED: SENSORCAINE 0.5% VIAL ONE (11:01)
[2020-04-27] MEDS ORDERED: EPINEPHrine ONE (11:01)
[2020-04-27] MEDS ORDERED: EXPAREL 266 MG/20 ML VIAL IJ ONE (12:00)
[2020-04-27] MEDS ORDERED: VERSED IV ONE (12:30)
[2020-04-27] MEDS ORDERED: DILAUDID ONE (12:32)
--- NOTE | 2020-04-27 12:41 | PRM.OPH ---
Immediate Post Op Report Immediate Post Op Report Imediate Post Op Report Preoperative diagnosis symptomatic cholelithiasis Postoperative diagnosis Same Procedure Laparoscopic cholecystectomy Surgeon Dr. Bai Anesthesia General endotracheal Estimated blood loss 50 mL Specimen Gallbladder Complication None JANEY BAI MD Apr 27, 2020 12:40
--- NOTE | 2020-04-27 12:46 | PRM.OPH ---
OPERATIVE REPORT OPERATIVE REPORT Procedure Patient was initially seen and identified in the preoperative area. The patient was then transferred from the preop area after identifying the patient, H&P, consents, and making sure that all her questions were answered the patient was transferred from the preop area to the operating theater. The patient was given general anesthesia. After having been transferred to the operating room table and placed in supine position. Anesthesia placed a tap block. The abdomen was then prepped with ChloraPrep and a sterile field was created in the standard fashion. I began by making incision just below the umbilicus appropriate for a 5 mm trocar. Then inserted the Veress needle into the abdominal cavity insufflated to 15 mmHg. Then used the [employer] system to place a 5 mm trocar into the abdominal cavity and confirmed there was no signs of intra-abdominal injury. We then placed the patient in a reverse Trendelenburg position rotated to the left. I made an incision appropriate for a 12 mm trocar 2 fingerbreadth below the xiphoid process. And then under direct visualization placed a 12 mm trocar into the abdominal cavity. 2 additional 5 mm trochars were then placed the first 1 above the dome of the gallbladder 2 fingers breath below the costal margin and the second 1 in the lateral portion of the right upper quadrant at least 2 fingers breath below the costal margin. We then began by grabbing the top of the gallbladder retracting it up towards the right shoulder. Then the critical view of safety was dissected out we dissected out the cystic duct cystic artery along with the subcuticular tissue that was holding the structures in order to allow us to see the liver behind. Once these were completely dissected out and free of additional tissue were able to also identify the common bile duct which was up in the operative field due to the short cystic duct. We placed 2 clips that will stay on the cystic duct 1 clip that goes with the specimen on the cystic duct and then a total of 3 clips on the cystic artery to to stay in the body 1 to go with the specimen. We then divided with scissors and the gallbladder was dissected away from the gallbladder fossa using electrocautery. Any bleeding from the gallbladder fossa was dealt with using electrocautery. Once the gallbladder was free it was placed into an Endo Catch bag and ultimately removed through the 12 mm trocar site. We did place a small piece of Surgicel in the gallbladder fossa just as a extra safety measure. Although there was no obvious or active sign of bleeding. We cleaned up any spilled blood and then went ahead and closed the 12 mm trocar site using the Jonathan Hung device to pass a 0 Vicryl suture. We tied it so that the incision was airtight. Then confirmed there is still no signs of any active or ongoing bleeding anywhere in the abdomen deinsufflated the abdomen remove the remaining trochars and then closed the skin using 4-0 Monocryl. The skin was then washed and dried and Dermabond was applied. Patient was handed back over to anesthesia to be awoken from general anesthesia transferred back to her stretcher and escorted to the PACU for further recovery. The patient tolerated the procedure well. JANEY TILLMAN MD Apr 27, 2020 12:46
[2020-04-27] MEDS ORDERED: ZOFRAN IV ONE (13:30)
--- NOTE | 2020-04-27 14:39 | PRM.DC ---
Discharge Summary Date of Discharge: Apr 27, 2020 Time of Request to Discharge: 15:30 Hospital Course 49-year-old female with no significant past medical history presented to [facility] room with right upper quadrant abdominal pain has been going on for some time but worse the last 2 days. Patient having nausea. No fever no chills. Work-up in the emergency room including right upper quadrant ultrasound patient was found to have cholelithiasis with acute cholecystitis. Patient was admitted, started surgery consulted. Start IV antibiotic. Patient underwent cholecystectomy. Patient is cleared to discharge from surgical site. Prescriptions was given by the surgeon. Patient will be followed by surgeon as his instructions. Patient discharged in stable condition. Activity as tolerated. Diet as per surgical instruction. General: Alert, Oriented X3 HEENT: Atraumatic, PERRLA Neck: Supple, No JVD Lungs: Clear to auscultation, Normal air movement Heart: Regular rate, Normal S1 Abdomen: Normal bowel sounds, Soft Extremities: No clubbing, No cyanosis Skin: No rashes, No breakdown Neuro: Normal speech, Strength at 5/5 X4 ext, Sensation intact Psych/Mental Status: Mood NL Procedures Cholecystectomy No Active Prescriptions or Reported Meds Sepsis Evaluation @ Discharge 04/27/20 08:18 Course Sepsis Screening Results: Posi: NEGATIVE Sepsis Qualifier/Stage: NO DEFINITE RISK Duration or Total Time Spent w: 25 Vitals & review Data Vital Sign - Last 24 Hours 04/26/20 04/26/20 04/26/20 04/26/20 15:06 17:46 19:30 19:42 Temp 98.0 97.9 98.4 Pulse 53 60 67 Resp 18 18 18 B/P (MAP) 95/56 (69) 96/50 (65) 135/75 (95) Pulse Ox 98 98 98 O2 Delivery Room Air Room Air 04/26/20 04/27/20 04/27/20 04/27/20 23:48 04:00 08:16 08:21 Temp 98.5 98.3 98.0 Pulse 55 60 62 Resp 18 18 18 B/P (MAP) 118/55 (76) 107/62 (77) 118/56 (76) Pulse Ox 95 96 97 O2 Delivery Room Air Room Air Room Air 04/27/20 04/27/20 04/27/20 04/27/20 12:30 12:30 12:40 12:50 Temp 97.9 Pulse 79 66 67 Resp 20 20 20 B/P (MAP) 116/63 (80) 117/83 (94) 112/88 (96) Pulse Ox 100 98 95 O2 Delivery Nasal Can[place] Nasal Canula Nasal Canula O2 Flow Rate 2 5 2 2 04/27/20 04/27/20 04/27/20 13:00 13:10 13:20 Pulse 74 77 76 Resp 18 18 18 B/P (MAP) 109/45 (66) 115/41 (65) 104/54 (71) Pulse Ox 100 99 100 O2 Delivery Nasal [place] Nasal Canula Nasal [place] O2 Flow Rate 2 2 2 Intake and Output 04/27/20 06:59 Intake Total 1550 ml Output Total 1000 ml Balance 550 ml Laboratory Tests Test 04/26/20 10:37 04/26/20 11:35 04/26/20 14:33 White Blood Count 5.5 10^3/uL 5.4 10^3/uL Red Blood Count 4.45 10^6/uL 4.12 10^6/uL Hemoglobin 14.4 g/dL 13.3 g/dL Hematocrit 41.3 % 38.9 % Mean Corpuscular Volume 92.8 fL 94.4 fL Mean Corpuscular Hemoglobin 32.4 pg 32.3 pg Mean Corpuscular Hemoglobin Concent 34.9 g/dL 34.2 g/dL Red Cell Distribution Width 12.1 % 12.1 % Platelet Count 278 10^3/uL 251 10^3/uL Mean Platelet Volume 10.1 fL 10.2 fL Neutrophils (%) (Auto) 61.9 % 53.0 % Lymphocytes (%) (Auto) 26.9 % 34.9 % Monocytes (%) (Auto) 8.8 % 9.3 % Neutrophils # (Auto) 3.4 10^3/uL 2.8 10^3/uL Lymphocytes # (Auto) 1.47 10^3/uL1 1.87 10^3/uL1 Monocytes # (Auto) 0.5 10^3/uL 0.5 10^3/uL Absolute Immature Granulocyte (auto 0.01 10^3 u/L 0.01 10^3 u/L Absolute Eosinophils (auto) 0.1 10^3/uL 0.1 10^3/uL Immature Granulocytes % 0.20 % 0.20 % Eosinophils % 1.8 % 2.4 % Basophils % 0.4 % 0.2 % Basophils # 0.0 10^3/uL 0.0 10^3/uL Prothrombin Time 10.6 SEC Prothrombin Time INR (Non-Therap) 1.0 Activated Partial Thromboplast Time 23.8 SEC Sodium Level 141 mmol/L 141 mmol/L Potassium Level 3.8 mmol/L 4.0 mmol/L Chloride Level 103.0 mmol/L 105.0 mmol/L Carbon Dioxide Level 30.4 mmol/L 29.1 mmol/L Anion Gap 11.4 10.9 Blood Urea Nitrogen 11 mg/dL 10 mg/dL Creatinine 0.98 mg/dL 0.96 mg/dL Estimated GFR () 72.4 74.1 Est GFR (CKD-EPI)(Non-Afr [place]) 59.8 61.3 BUN/Creatinine Ratio 11.0 10.0 Glucose Level 97 mg/dL 95 mg/dL Calcium Level 9.3 mg/dL 9.2 mg/dL Total Bilirubin 0.2 mg/dL Aspartate Amino Transf (AST/SGOT) 36 U/L Alanine Aminotransferase (ALT/SGPT) 61 U/L Alkaline Phosphatase 70 U/L Total Protein 7.5 g/dL Albumin 4.0 g/dL Globulin 3.5 Albumin/Globulin Ratio 1.142 Amylase Level 39 U/L Lipase 69 U/L Urine Collection Type UNKNOWN Urine Color YELLOW Urine Appearance CLEAR Urine Bilirubin NEGATIVE MG/DL Urine Ketones NEGATIVE Urine Specific [place] 1.020 Urine pH 7.0 Urine Protein NEGATIVE Urine Urobilinogen NORMAL Urine Nitrate NEGATIVE Urine Leukocyte Esterase NEGATIVE Urine Blood NEGATIVE Urine Glucose NORMAL Current Medications Medications (Trade) Dose Ordered Sig/Christin PRN Reason Start Time Stop Time Status Last Admin Cefoxitin Sodium 2 gm/Sodium Chloride 100 ml @ 100 mls/hr Q8H 04/26/20 18:00 05/26/20 17:59 04/27/20 09:13 Famotidine (Pepcid) 20 mg BID 04/26/20 21:00 05/26/20 20:59 04/27/20 09:12 Ketorolac Tromethamine (Toradol) 15 mg Q6H PRN PAIN 4 - 6 04/26/20 14:30 05/01/20 14:29 04/27/20 09:00 Ondansetron HCl (Zofran) 4 mg Q4H PRN NAUSEA / VOMITING 04/27/20 05:00 05/27/20 04:59 04/27/20 09:13 LEVEL 1 SEPSIS INFECTION CRITE: ABX Therapy, Abdominal Pain LEVEL 2-SIRS (LIST ALL THAT AP: None/Not assessed Cardiovascular Evidence: Not Assessed or None Hematologic Evidence: None/Not assessed Hepatic Evidence: None/Not assessed Metabolic Evidence: None/Not assessed Neurological Evidence: None/Not assessed Respiratory Evidence: None/Not assessed Renal Evidence: None/Not assessed O2 Sat by Pulse Oximetry: 100 Oxygen Flow Rate: 2 Plan Problems: (1) Acute cholecystitis due to biliary calculus Status: Acute ICD Code: K80.00 - Calculus of gallbladder with acute cholecystitis without obstruction SNOMED: [id number] Assessment Patient underwent cholecystectomy, cleared by surgeon for discharge. Prescription given by surgeon. To be followed outpatient as per surgery instructions. Discharge Date: Apr 27, 2020 Discharge Disposition: Stable Plan Patient discharged home Afterbeing cleared by surgeon. pain medications given by surgeon. Follow-up with the surgeon as per instructions. JENN GAXIOLA MD Apr 27, 2020 14:39
--- NOTE | 2020-04-27 18:30 | NUR ---
PIV DISCONTINUED. CATHETER INTACT. DISCHARGE INSTRUCTIONS REVIEWED WITH OPPORTUNITY FOR QUESTIONS AND ANSWERS. PRESCRIPTION GIVEN TO PATENT. PATIENT LEFT UNIT VIA TRANSPORT CHAIR.
== END 2020-04-27 18:15 | disposition home or self-care (01) ==
LOC: ER 10:25 → MS 11:54
PROVIDERS: ADMIT Internal Medicine; ATTEND Internal Medicine
DX: K80.62 Calculus of gallbladder and bile duct with acute cholecystitis without obstruction (principal); K59.00 Constipation, unspecified; K21.9 Gastro-esophageal reflux disease without esophagitis; Z98.51 Tubal ligation status; Z79.899 Other long term (current) drug therapy
CPT/HCPCS: 36415; 47562; 76705; 80053; 81003; 82150; 83690; 85025 ×2; 85610; 85730; 88304; 96365; 96366 ×2; 96375; 96376; 99284; A4217; G0378 ×28; J0171; J0330; J0694 ×2; J1100; J1170; J1885 ×4; J2001; J2250 ×2; J2405 ×6; J3010; J3490 ×3; J7050 ×3; J7120 ×2; 80048; C9290